=== PATIENT | male | born 1945 | race Caucasian/White ===

== ENCOUNTER → 2021-09-23 | Outpatient (CLI) | payer OTHER ==
[~2021-09-23] MED LIST: 2 BP MEDS; ASPI81EC PO; CHOLESTEROL MED
== END | disposition home or self-care (01) ==
LOC: LAB SHORT 12:04
DX: S61.258A Open bite of other finger without damage to nail, initial encounter (principal)
CPT/HCPCS: 87070; 87205

== ENCOUNTER 2025-01-21 09:02 | Day surgery (SDC) | payer OTHER ==
[~2025-01-21] VITALS: Ht 182.9 cm; Wt 103.5 kg
[2025-01-21] MEDS ORDERED: CeFAZolin Sodium 2,000 MG VIAL ONE (09:07)
[2025-01-21] MEDS ORDERED: Tranexamic Acid 100 ML IV ONE (09:08)
[2025-01-21] MEDS ORDERED: LOSA50 PO (09:25)
[2025-01-21] MEDS ORDERED: METO50ER PO (09:25)
[2025-01-21] MEDS ORDERED: AMLO10 PO (09:26)
[2025-01-21] MEDS ORDERED: ZOCOR20 MG PO (09:26)
[2025-01-21] MEDS ORDERED: XARELTO20 MG PO (09:50)
--- NOTE | 2025-01-21 10:06 | NUR ---
01/21/25 1006 Alberto,Matthew PT HAS RASH ON BILATERAL LOWER EXTREMITIES. DR ROBERSON AWARE AND PLAN TO PROCEED WITH SURGERY.
[2025-01-21] MEDS ORDERED: FentaNYL Citrate 50 MCG/ML 2 ML Injection ONE (10:16)
[2025-01-21] MEDS ORDERED: Bupivacaine 0.5% W/EPI 1:200000 SDV 30 ML Vial ONE (11:01)
--- NOTE | 2025-01-21 11:04 | NUR ---
01/21/25 1104 Tia Kent RASH NOTED ON BILATERAL LOWER LEGS, OKAY TO PROCEED PER DR RAPP.
[2025-01-21 11:50] VITALS: BP 135/79
[2025-01-21] MEDS ORDERED: Metoclopramide HCl 5MG / ML 2ML Vial IV ONE (16:36)
[2025-01-21] MEDS ORDERED: Ondansetron HCl 2 MG / ML 2ML Vial IV ONE (16:36)
[2025-01-21] MEDS ORDERED: Dexamethasone Sod Phos 10 MG/ML 1ML VIAL XX ONE (16:36)
== END 2025-01-21 13:05 | disposition home or self-care (01) ==
LOC: ORSCSDS 09:02
PROVIDERS: Orthopaedic Surgery Sports Medicine
PROC: 0SBC4ZZ Excision of Right Knee Joint, Percutaneous Endoscopic Approach (ICD-10-PCS; principal; 2025-01-21 10:30)
DX: S83.241A Other tear of medial meniscus, current injury, right knee, initial encounter (principal); I10 Essential (primary) hypertension; E78.5 Hyperlipidemia, unspecified; I48.91 Unspecified atrial fibrillation; F41.9 Anxiety disorder, unspecified; Z85.46 Personal history of malignant neoplasm of prostate; N28.9 Disorder of kidney and ureter, unspecified; Z96.643 Presence of artificial hip joint, bilateral; Z79.899 Other long term (current) drug therapy
CPT/HCPCS: J0166; J0690; J1100; J2405; J2704; J2765; J3010; J7120